=== PATIENT | female | born 1980 | race Asian ===

== ENCOUNTER 2016-11-09 19:44 | Emergency (ER) | payer OTHER ==
[2016-11-09] MEDS ORDERED: PHENAZOPYRIDINE HCL 200 MG TAB PO ONE (19:57)
[2016-11-09 20:06] LABS: COLOR RED; NITRITE,URINE NEGATIVE (NEGATIVE); PH,URINE 6.5 (5.0-7.5)
[2016-11-09 20:07] LABS: LEUKOCYTE ESTERASE,URINE 2+ (NEGATIVE)
[2016-11-09 20:08] LABS: BACTERIA 2+ /hpf (NONE SEEN); MUCUS 2+ /lpf (NONE-1+); RBC,URINE >182 /hpf (0-3); WBC,URINE 25-50 /hpf (0-3)
--- NOTE | 2016-11-09 20:24 | EDPHY ---
H & P Stated Complaint: urgency, blood in urine HPI/ROS: CHIEF COMPLAINT: The dysuria and hematuria History by patient HISTORY OF PRESENT ILLNESS: 36 year old woman with a history of type 2 diabetes on metformin presents complaining of several hours of dysuria, urgency and hematuria. She denies any fever, chills, nausea or vomiting. She has not been checking her sugars. She says it feels like prior UTIs although she has not had 1 in many years. She has not taken anything for it at home. She denies any back pain. REVIEW OF SYSTEMS: As in HPI, and all other systems reviewed and are negative Source: Patient - Personal History LMP (Females 10-55): 15-21 Days Ago Current Tetanus/Diphtheria Vaccine: Yes - Medical/Surgical History Hx Asthma: No Hx Chronic Respiratory Disease: No Hx Diabetes: Yes Hx Cardiac Disease: No Hx Renal Disease: No Hx Cirrhosis: No Hx Alcoholism: No Hx HIV/AIDS: No Hx Splenectomy or Spleen Trauma: No Other PMH: DM type 2, VT at age 26, - Social History Smoking Status: Never smoked - Physical Exam Exam: General Appearance: Alert, well-appearing. Eyes: Pupils equal and round no pallor or injection. ENT, Mouth: Mucous membranes moist. Respiratory: Normal, effort, There are no retractions, lungs are clear to auscultation. Cardiovascular: Regular rate and rhythm. Gastrointestinal: Abdomen is soft and nontender, no masses, bowel sounds normal. Back: No CVA tenderness Neurological: Awake, alert and oriented x 3, no pronator drift, normal gait, no pronator drift Skin: Warm and dry, no rashes. Musculoskeletal: Neck is supple nontender. Extremities are symmetrical, full range of motion. Psychiatric: Patient has normal affect, there is no agitation. Constitutional: Initial Vital Signs Temperature (C) 37.4 C 11/09/16 19:49 Heart Rate 104 H 11/09/16 19:49 Respiratory Rate 18 11/09/16 19:49 Blood Pressure 137/100 H 11/09/16 19:49 O2 Sat (%) 97 11/09/16 19:49 O2 Delivery Mode Room Air Allergies/Adverse Reactions: No Known Allergies Allergy (Unverified 11/09/16 19:53) Home Medications: Medication Instructions Recorded Cephalexin 500 mg PO QID #30 tablet 11/09/16 Metformin HCl 11/09/16 Phenazopyridine HCl [Pyridium] 100 mg PO TID PRN 2 Days 11/09/16 Medical Decision Making ED Course/Re-evaluation: 36-year-old woman presents with UTI symptoms and urinalysis positive for urinary tract infection. Patient is hemodynamically stable and nontoxic- appearing. She is started on oral antibiotics and given Pyridium for her symptoms. We discussed return precautions. Patient was given her 1st dose of antibiotics here as pharmacies are closing. - Data Points Laboratory Results: 11/09/16 19:55 Urine Color RED Urine Appearance TURBID Urine pH 6.5 (5.0-7.5) Ur Specific Bear 1.025 (1.002-1.030) Urine Protein 3+ H (NEGATIVE) Urine Ketones 2+ H (NEGATIVE) Urine Blood 3+ H (NEGATIVE) Urine Nitrate NEGATIVE (NEGATIVE) Urine Bilirubin NEGATIVE (NEGATIVE) Urine Urobilinogen 0.2 EU EU (0.2-1.0) Ur Leukocyte Esterase 2+ H (NEGATIVE) Urine RBC >182 /hpf H /hpf (0-3) Urine WBC 25-50 /hpf H /hpf (0-3) Ur Epithelial Cells TRACE /lpf /lpf (NONE-1+) Urine Bacteria 2+ /hpf H /hpf (NONE SEEN) Urine Mucus 2+ /lpf H /lpf (NONE-1+) Urine Glucose NEGATIVE (NEGATIVE) Departure - Departure Disposition: Home, Routine, Self-Care Clinical Impression: Urinary tract infection Qualifiers: Urinary tract infection type: acute cystitis Hematuria presence: with hematuria Qualified Code(s): N30.01 - Acute cystitis with hematuria Condition: Good Instructions: Urinary Tract Infection in Women (ED) Additional Instructions: You were seen by Dr. Porsche Cavazos today. Take antibiotics and Pyridium as prescribed. Return for any worsening or new concerns. Referrals: NONE *PRIMARY CARE P,. [Primary Care Provider] - As per Instructions Prescriptions: Cephalexin 500 mg PO QID #30 tablet Phenazopyridine HCl [Pyridium] 100 mg PO TID PRN 2 Days PRN Reason: dysuria
[2016-11-09] MEDS ORDERED: CEPHALEXIN 500 MG CAP PO ONE ×2 (20:27→20:28)
[2016-11-09 20:42] VITALS: BP 135/104; PULSE 108; RESP 16; TEMP 99.1; O2SAT 93
== END 2016-11-09 20:40 | disposition home or self-care (01) ==
LOC: CED 19:44
DX: N30.01 Acute cystitis with hematuria (principal); B96.89 Other specified bacterial agents as the cause of diseases classified elsewhere; E11.9 Type 2 diabetes mellitus without complications; I25.2 Old myocardial infarction; Z79.84 Long term (current) use of oral hypoglycemic drugs
CPT/HCPCS: 81003-PO; 81015-PO